=== PATIENT | female | born 2000 | race Caucasian/White ===

== ENCOUNTER 2025-04-08 17:50 | Observation (INO) ==
--- NOTE | 2025-04-08 18:01 | DR.CP ---
HPI Time Seen Time Seen by Provider: 04/08/25 18:01 HPI Comment HPI Comment: History as below. COVID-19 Coronavirus risk:travel/contact w/high risk person: Yes Has patient experienced Coronavirus symptoms: Yes Reviewed Nurses Notes Review: Yes PMH PMH Past Surgical History: No Social History Do you use any recreational Drugs:: No ROS Review of Systems Constitutional: No Symptoms Reported and See HPI Eyes: No Symptoms Reported and See HPI ENTM: No Symptoms Reported and See HPI Respiratoy: No Symptoms Reported and See HPI Cardiovascular: No Symptoms Reported and See HPI Gastrointestinal/Abdominal: No Symptoms Reported Genitourinary: No Symptoms Reported and See HPI Neurological: No Symptoms Reported and See HPI Musculoskeletal: No Symptoms Reported and See HPI Integumentary: No Symptoms Reported and See HPI Hematologic/Lymphatic: No Symptoms Reported and See HPI Endocrine: No Symptoms Reported and See HPI Psychiatric: No Symptoms Reported and See HPI All Other Systems: Reviewed and Negative PE Vitals Vitals: Vital Signs Temperature 98.3 F Pulse Rate [Left] 79 Pulse Rate 93 Pulse Rate 87 Pulse Rate 85 Pulse Rate 84 Pulse Rate 84 Pulse Rate 88 Pulse Rate 90 Pulse Rate 84 Pulse Rate 81 Pulse Rate 80 Pulse Rate 72 Pulse Rate 77 Pulse Rate 75 Pulse Rate 78 Pulse Rate 86 Pulse Rate 74 Pulse Rate 73 Pulse Rate 83 Pulse Rate 79 Pulse Rate 75 Pulse Rate 79 Respiratory Rate 19 Respiratory Rate 22 Respiratory Rate 16 Respiratory Rate 36 Respiratory Rate 15 Respiratory Rate 24 Respiratory Rate 9 Respiratory Rate 22 Respiratory Rate 20 Respiratory Rate 16 Respiratory Rate 29 Respiratory Rate 19 Respiratory Rate 18 Respiratory Rate 12 Respiratory Rate 23 Respiratory Rate 18 Respiratory Rate 28 Respiratory Rate 19 Blood Pressure 120/64 Blood Pressure 121/71 Blood Pressure 124/82 Blood Pressure 124/74 Blood Pressure 124/74 Blood Pressure 124/74 Blood Pressure 117/74 Blood Pressure 117/74 Blood Pressure 123/72 Blood Pressure 109/73 Blood Pressure 122/57 Blood Pressure 131/80 Blood Pressure 132/78 Blood Pressure 132/78 O2 Sat by Pulse Oximetry 95 O2 Sat by Pulse Oximetry 99 O2 Sat by Pulse Oximetry 99 O2 Sat by Pulse Oximetry 100 O2 Sat by Pulse Oximetry 98 O2 Sat by Pulse Oximetry 98 O2 Sat by Pulse Oximetry 99 O2 Sat by Pulse Oximetry 99 O2 Sat by Pulse Oximetry 98 O2 Sat by Pulse Oximetry 99 O2 Sat by Pulse Oximetry 100 O2 Sat by Pulse Oximetry 100 General Limitations: No Limitations General Appearance: Alert and In No Apparent Distress Head Head Exam: Normal Inspection Eyes Eye exam: Normal Appearance, PERRL and EOMI; negative Scleral Icterus or Conjunctival Injection ENT ENT Exam: Normal Exam, Normal Oropharynx, Normal External Ear Exam and TM's Normal Bilaterally Chest Chest Inspection: Normal Inspection, Symmetric Chest Wall Rise and Tenderness Respiratory Respiratory Exam: Normal Lung Sounds Bilat; negative Accessory Muscle Use, Chest Wall Tenderness or Respiratory Distress Cardiovascular Cardiovascular Exam: Regular Rate, Normal Rhythm and Normal Heart Sounds; negative Systolic Murmur or Diastolic Murmur Abdominal Exam Abdominal Exam: Normal Inspection, Normal Bowel Sounds, Soft and Tenderness Abdominal Tenderness: Epigastrium and Moderate Extremities Extremities Exam: Normal Inspection and Normal Capillary Refill Back Back Exam: Normal Inspection; negative (R) CVA Tenderness or (L) CVA Tenderness Neurologic Neurological Exam: Alert and Oriented X3; negative Motor Sensory Deficit Psychiatric Psychiatric Exam: Normal Affect and Normal Mood Skin Skin Exam: Warm and Intact ROR Labs Reviewed 04/08/25 18:30 04/08/25 18:30 Laboratory: WBC 20.1 X10^3/uL (3.6-10.0) H 04/08/25 18:30 RBC 4.77 X10^6/uL (3.5-5.4) 04/08/25 18:30 Hgb 14.1 g/dL (12.0-16.0) 04/08/25 18:30 Hct 41.7 % (36.0-47.0) 04/08/25 18:30 MCV 87.3 fL (80.0-100.0) 04/08/25 18:30 MCH 29.6 pg (27.0-34.0) 04/08/25 18:30 MCHC 33.9 g/dL (33.0-35.0) 04/08/25 18:30 RDW 13.4 % (11.6-16.5) 04/08/25 18:30 Plt Count 299 X10^3/uL (150.0-450.0) 04/08/25 18:30 Plt Count Comment Adequate (ADEQUATE) 04/08/25 18:30 MPV 8.8 fL (7.4-11.0) 04/08/25 18:30 Neut % (Auto) 91.5 % (42.0-75.0) H 04/08/25 18:30 Lymph % (Auto) 5.5 % (21.0-51.0) L 04/08/25 18:30 [place] % (Auto) 2.7 % (0.0-13.0) 04/08/25 18:30 Eos % (Auto) 0.1 % (0.9-2.9) L 04/08/25 18:30 Baso % (Auto) 0.2 % (0.2-1.0) 04/08/25 18:30 Neut # (Auto) 18.4 x10^3/uL (2.2-4.8) H 04/08/25 18:30 Lymph # (Auto) 1.1 X10^3/uL (1.3-2.9) L 04/08/25 18:30 [place] # (Auto) 0.5 x10^3/uL (0.3-0.8) 04/08/25 18:30 Eos # (Auto) 0.0 x10^3/uL (0.0-0.2) 04/08/25 18:30 Baso # (Auto) 0.0 X10^3/uL (0.0-0.1) 04/08/25 18:30 Absolute Nucleated RBC 0.1 /100WBC 04/08/25 18:30 Total Counted 100 04/08/25 18:30 Neutrophils % (Manual) 90 % (39-76) H 04/08/25 18:30 Lymphocytes % (Manual) 9 % (13-43) L 04/08/25 18:30 Monocytes % (Manual) 1 % (4-9) L 04/08/25 18:30 Plt Morphology Comment Normal (NORMAL) 04/08/25 18:30 RBC Morphology Normal (NORMAL) 04/08/25 18:30 D-Dimer 0.30 ug/ml (0.0-0.57) 04/08/25 18:30 Sodium 141 mmol/L (136-145) 04/08/25 18:30 Corrected Sodium 141 mmol/L (136-145) 04/08/25 18:30 Potassium 3.7 mmol/L (3.5-5.1) 04/08/25 18:30 Chloride 103 mmol/L (98-107) 04/08/25 18:30 Carbon Dioxide 27.6 mmol/L (21-32) 04/08/25 18:30 BUN 13 mg/dL (7-18) 04/08/25 18:30 Creatinine 0.73 mg/dL (0.55-1.02) 04/08/25 18:30 Est GFR (MDRD) Af Amer > 60 (>60) 04/08/25 18:30 Est GFR (MDRD) Non-Af > 60 (>60) 04/08/25 18:30 Glucose 119 mg/dL (65-99) H 04/08/25 18:30 Calcium 9.6 mg/dL (8.5-10.1) 04/08/25 18:30 Corrected Calcium TNP 04/08/25 18:30 Total Bilirubin 1.50 mg/dL (0.2-1.0) H 04/08/25 18:30 AST 79 Units/L (15-37) H 04/08/25 18:30 ALT 58 Units/L (12-78) 04/08/25 18:30 Alkaline Phosphatase 125 Units/L (46-116) H 04/08/25 18:30 Creatine Kinase 105 Units/L (26-192) 04/08/25 18:30 Troponin I High Sens < 4.0 ng/L (4.0-60.0) L 04/08/25 18:30 B-Natriuretic Peptide 18.1 pg/mL (0-79) 04/08/25 18:30 Total Protein 8.0 g/dL (6.4-8.2) 04/08/25 18:30 Albumin 4.1 g/dL (3.4-5.0) 04/08/25 18:30 Globulin 3.9 g/dL (2.5-4.5) 04/08/25 18:30 Albumin/Globulin Ratio 1.1 Ratio (1.1-2.1) 04/08/25 18:30 Amylase 47 Units/L (25-115) 04/08/25 18:30 Lipase 24 Units/L (16-77) 04/08/25 18:30 Specimen Type Clean catch urine 04/08/25 20:08 Urine Color Dark yellow (YELLOW) 04/08/25 20:08 Urine Appearance Cloudy (CLEAR) 04/08/25 20:08 Urine pH 8.0 (5.0 - 8.0) 06/07/25 20:08 Ur Specific [place] 1.020 (1.000-1.030) 04/08/25 20:08 Urine Protein Negative (NEGATIVE) 04/08/25 20:08 Urine Glucose (UA) Negative (NEGATIVE) 04/08/25 20:08 Urine Ketones 4+ (NEGATIVE) 04/08/25 20:08 Urine Blood Negative (NEGATIVE) 04/08/25 20:08 Urine Nitrite Negative (NEGATIVE) 04/08/25 20:08 Urine Bilirubin Negative (NEGATIVE) 04/08/25 20:08 Urine Urobilinogen 2+ (NORMAL) 04/08/25 20:08 Ur Leukocyte Esterase 1+ (NEGATIVE) 04/08/25 20:08 Urine RBC None seen /HPF (0-3) 04/08/25 20:08 Urine WBC 0-2 /HPF (0-5) 04/08/25 20:08 Ur Squamous Epith Cells Few /HPF (NEGATIVE) 04/08/25 20:08 Amorphous Sediment 4+ /HPF (NEGATIVE) 04/08/25 20:08 Urine Bacteria Trace /HPF (NEGATIVE) 04/08/25 20:08 Ur Culture Indicated? No/not indicated 04/08/25 20:08 Opioid Opioid Risk Tool Total: 0 Total Score Risk Category: Low Risk Copyright: Jack SENA predicting aberrant behaviors Discharge Plan Diagnosis Discharge Problem: Acute cholecystitis, Cholelithiasis, Abdominal pain, Leukocytosis Discharge Plan Patient Disposition: HOME, SELF-CARE Condition: Stable Orders to Discharge Patient Discharge Orders: Transfer (Routine); Ordered 04/08/25 Ordered By: JESSE GUERRERO
[2025-04-08] MEDS: TORADOL 60 MG VIAL IM ONE (18:34)
[2025-04-08] MEDS: ZOFRAN INJ 4 MG VIAL IM ONE (18:35)
[2025-04-08 18:41] LABS: MEAN PLATELET VOLUME 8.8 fL (7.4-11.0); RED BLOOD COUNT 4.77 X10^6/uL (3.5-5.4); WHITE BLOOD COUNT 20.1 X10^3/uL (3.6-10.0)
[2025-04-08 18:44] LABS: BASOPHILS % (AUTO) 0.2 % (0.2-1.0); EOSINOPHILS % (AUTO) 0.1 % (0.9-2.9); HEMATOCRIT 41.7 % (36.0-47.0); HEMOGLOBIN 14.1 g/dL (12.0-16.0); LYMPHOCYTES # (AUTO) 1.1 X10^3/uL (1.3-2.9); LYMPHOCYTES % (AUTO) 5.5 % (21.0-51.0); MEAN CORPUSCULAR HEMOGLOBIN 29.6 pg (27.0-34.0); MEAN CORPUSCULAR HGB CONC 33.9 g/dL (33.0-35.0); MEAN CORPUSCULAR VOLUME 87.3 fL (80.0-100.0); MONOCYTES # (AUTO) 0.5 x10^3/uL (0.3-0.8); MONOCYTES % (AUTO) 2.7 % (0.0-13.0); NEUTROPHILS # (AUTO) 18.4 x10^3/uL (2.2-4.8); NEUTROPHILS % (AUTO) 91.5 % (42.0-75.0); PLATELET COUNT 299 X10^3/uL (150.0-450.0); RED CELL DISTRIBUTION WIDTH 13.4 % (11.6-16.5)
--- NOTE | 2025-04-08 18:48 | EKG ---
Test Reason : CHEST PAIN. Blood Pressure : */* mmHG Vent. Rate : 72 BPM Atrial Rate : 72 BPM P-R Int : 132 ms QRS Dur : 92 ms QT Int : 400 ms P-R-T Axes : 41 43 43 degrees QTc Int : 438 ms Sinus rhythm with marked sinus arrhythmia Otherwise normal ECG No previous ECGs available Confirmed by Luis M Nice MD ([id number]) on 04/09/2025 6:40:23 AM Referred By: Confirmed By: Luis M Nice MD
[2025-04-08 18:54] LABS: ALANINE AMINOTRANSFERASE 58 Units/L (12-78); ALBUMIN 4.1 g/dL (3.4-5.0); ALKALINE PHOSPHATASE 125 Units/L (46-116); AMYLASE 47 Units/L (25-115); ASPARTATE AMINO TRANSFERASE 79 Units/L (15-37); BLOOD UREA NITROGEN 13 mg/dL (7-18); CALCIUM 9.6 mg/dL (8.5-10.1); CARBON DIOXIDE 27.6 mmol/L (21-32); CHLORIDE 103 mmol/L (98-107); COR NA(FOR HYPERGLY) 141 mmol/L (136-145); CREATINE KINASE 105 Units/L (26-192); CREATININE 0.73 mg/dL (0.55-1.02); GLUCOSE 119 mg/dL (65-99); LIPASE 24 Units/L (16-77); POTASSIUM 3.7 mmol/L (3.5-5.1); SODIUM 141 mmol/L (136-145); eGFR NON BLACK RACES > 60 (>60)
[2025-04-08 18:56] LABS: PLATELET MORPHOLOGY COMMENT NORMAL (NORMAL)
--- NOTE | 2025-04-08 19:08 | RAD ---
EXAM: CHEST, 1 VIEW HISTORY: CHEST PAIN; COMPARISON: None. TECHNIQUE: Portable chest FINDINGS: Heart size and mediastinal contours are normal. Lungs are clear as are the pleural spaces. No free air or pneumothorax. No acute bony abnormality. IMPRESSION: No acute radiographic abnormalities of the chest THIS IS AN ELECTRONICALLY VERIFIED FINAL REPORT 04/08/2025 7:05 PM - Electronically signed by Chase Crane MD
[2025-04-08 20:26] LABS: BILIRUBIN,URINE NEGATIVE (NEGATIVE); BLOOD/HEMOGLOBIN,URINE NEGATIVE (NEGATIVE); GLUCOSE, URINE NEGATIVE (NEGATIVE); KETONES,URINE 4+ (NEGATIVE); LEUKOCYTE ESTERASE ,URINE 1+ (NEGATIVE); NITRITES,URINE NEGATIVE (NEGATIVE); PROTEIN,URINE NEGATIVE (NEGATIVE); UROBILINOGEN,URINE 2+ (NORMAL)
[2025-04-08 20:33] LABS: APPEARANCE,URINE CLOUDY (CLEAR); COLOR,URINE DARK YELLOW (YELLOW)
[2025-04-08 20:34] LABS: BACTERIA,URINE TRACE /HPF (NEGATIVE); RBC,URINE NONE SEEN /HPF (0-3); SQUAMOUS EPITHELIAL CELL,UR FEW /HPF (NEGATIVE)
--- NOTE | 2025-04-08 21:20 | CT ---
EXAM: CT ABDOMEN AND PELVIS WITHOUT CONTRAST HISTORY: ABDOMINAL PAIN, N/V; COMPARISON: None TECHNIQUE: Axial images were obtained of the abdomen and pelvis without IV contrast. Sagittal and coronal reformatted images were provided. All images were reviewed in a variety of windows and levels. RADIATION REDUCTION TECHNIQUE: Automated exposure control, adjustment of the mA or kV according to patient size, or iterative reconstruction techniques were used. FINDINGS: Please note that lack of IV contrast does limit evaluation of the soft tissues and vascular detail. The visualized lower lung zones are clear. The heart size is within normal limits. There is no evidence of a pericardial effusion. The liver, spleen, pancreas, adrenal glands, and kidneys are grossly unremarkable. Cholelithiasis. There is no evidence of stones or signs of obstructive uropathy. The stomach, small bowel, and colon are grossly unremarkable. There are no inflammatory changes in the right lower quadrant to suggest secondary signs of acute appendicitis. Normal appendix right lower quadrant. There is no evidence of retroperitoneal or mesenteric lymphadenopathy. The uterus is present. The visualized bones are intact. There are no concerning lytic or blastic lesions identified. IMPRESSION: Cholelithiasis. No acute abdominal or pelvic pathology THIS IS AN ELECTRONICALLY VERIFIED FINAL REPORT 04/08/2025 9:16 PM - Electronically signed by Lior Bai MD
[2025-04-08] MEDS: NS 1,000 ML IV 1,000 ML IV SCH (22:19)
[2025-04-08] MEDS: CIPRO IV 400 MG PREMIX* 400 MG/200 ML IV.SOLN. IV ONE (22:19)
[2025-04-08] MEDS ORDERED: ULTANE GAS IN ONE (22:20)
[2025-04-08] MEDS ORDERED: KETAMINE HCL ONE (22:20)
[2025-04-08] MEDS ORDERED: XYLOCAINE 2 % (PLAIN) ONE (22:20)
[2025-04-08 23:22] VITALS: BMI 30.3
[2025-04-08] MEDS: MORPHINE SULFATE INJ 2 MG INJ IVP PRN (23:29)
[2025-04-09 06:12] LABS: BASOPHILS # (AUTO) 0.1 X10^3/uL (0.0-0.1); BASOPHILS % (AUTO) 0.5 % (0.2-1.0); EOSINOPHILS # (AUTO) 0.1 x10^3/uL (0.0-0.2); EOSINOPHILS % (AUTO) 0.6 % (0.9-2.9); HEMATOCRIT 37.5 % (36.0-47.0); HEMOGLOBIN 12.8 g/dL (12.0-16.0); LYMPHOCYTES # (AUTO) 2.1 X10^3/uL (1.3-2.9); LYMPHOCYTES % (AUTO) 17.6 % (21.0-51.0); MEAN CORPUSCULAR HEMOGLOBIN 29.6 pg (27.0-34.0); MEAN CORPUSCULAR HGB CONC 34.2 g/dL (33.0-35.0); MEAN CORPUSCULAR VOLUME 86.6 fL (80.0-100.0); MEAN PLATELET VOLUME 9.3 fL (7.4-11.0); MONOCYTES # (AUTO) 0.9 x10^3/uL (0.3-0.8); MONOCYTES % (AUTO) 7.7 % (0.0-13.0); NEUTROPHILS # (AUTO) 8.9 x10^3/uL (2.2-4.8); NEUTROPHILS % (AUTO) 73.6 % (42.0-75.0); PLATELET COUNT 286 X10^3/uL (150.0-450.0); RED BLOOD COUNT 4.33 X10^6/uL (3.5-5.4); RED CELL DISTRIBUTION WIDTH 12.9 % (11.6-16.5); WHITE BLOOD COUNT 12.1 X10^3/uL (3.6-10.0)
[2025-04-09 06:20] LABS: ALANINE AMINOTRANSFERASE 120 Units/L (12-78); ALBUMIN 3.3 g/dL (3.4-5.0); ALKALINE PHOSPHATASE 109 Units/L (46-116); AMYLASE 37 Units/L (25-115); ASPARTATE AMINO TRANSFERASE 107 Units/L (15-37); BLOOD UREA NITROGEN 12 mg/dL (7-18); CALCIUM 8.6 mg/dL (8.5-10.1); CARBON DIOXIDE 25.8 mmol/L (21-32); CHLORIDE 106 mmol/L (98-107); COR CA(FOR HYPOALB) 9.2 mg/dL (8.5-10.1); CREATININE 0.69 mg/dL (0.55-1.02); GLUCOSE 85 mg/dL (65-99); LIPASE 17 Units/L (16-77); POTASSIUM 3.8 mmol/L (3.5-5.1); SODIUM 141 mmol/L (136-145); TOTAL PROTEIN 6.7 g/dL (6.4-8.2); eGFR NON BLACK RACES > 60 (>60)
[2025-04-09] MEDS: ZOFRAN INJ 4 MG VIAL IVP PRN ×2 (08:35→21:16)
[2025-04-09] MEDS: CIPRO IV 400 MG PREMIX* 400 MG/200 ML IV.SOLN. IV SCH (10:06)
--- NOTE | 2025-04-09 19:06 | DR.H&P ---
H&P History & Physical for Day of: H&P Date: 04/09/25 Chief Complaint Chief Complaint: Right upper quadrant pain History of Present Illness History of Present Illness: Patient is a 24-year-old female who presented to the emergency room with several history of right upper quadrant pain rating into her back. Evaluated in the emergency room and CT scan consistent with cholelithiasis. No obvious evidence of acute cholecystitis. Mild elevation of liver function test including total bilirubin 1.50 which declined 1.20 later that morning. Social History Does patient currently use any type of tobacco product: No Type of Tobacco Use: None Does any household member use tobacco: No Alcohol Use: None Drug Use: None Medications Home Medications: Home Medications Medication Instructions Recorded Confirmed Type NK 04/09/25 04/09/25 History Allergies Allergies Allergy/AdvReac Type Severity Reaction Status Date / Time No Known Allergies Allergy Verified 04/08/25 18:06 Labs 04/09/25 05:14 04/09/25 05:14 Labs: Laboratory WBC 12.1 X10^3/uL (3.6-10.0) H D 04/09/25 05:14 RBC 4.33 X10^6/uL (3.5-5.4) 04/09/25 05:14 Hgb 12.8 g/dL (12.0-16.0) 04/09/25 05:14 Hct 37.5 % (36.0-47.0) 04/09/25 05:14 MCV 86.6 fL (80.0-100.0) 04/09/25 05:14 MCH 29.6 pg (27.0-34.0) 04/09/25 05:14 MCHC 34.2 g/dL (33.0-35.0) 04/09/25 05:14 RDW 12.9 % (11.6-16.5) 04/09/25 05:14 Plt Count 286 X10^3/uL (150.0-450.0) 04/09/25 05:14 Plt Count Comment Adequate (ADEQUATE) 04/08/25 18:30 MPV 9.3 fL (7.4-11.0) 04/09/25 05:14 Neut % (Auto) 73.6 % (42.0-75.0) 04/09/25 05:14 Lymph % (Auto) 17.6 % (21.0-51.0) L 04/09/25 05:14 [place] % (Auto) 7.7 % (0.0-13.0) 04/09/25 05:14 Eos % (Auto) 0.6 % (0.9-2.9) L 04/09/25 05:14 Baso % (Auto) 0.5 % (0.2-1.0) 04/09/25 05:14 Neut # (Auto) 8.9 x10^3/uL (2.2-4.8) H 04/09/25 05:14 Lymph # (Auto) 2.1 X10^3/uL (1.3-2.9) 04/09/25 05:14 [place] # (Auto) 0.9 x10^3/uL (0.3-0.8) H 04/09/25 05:14 Eos # (Auto) 0.1 x10^3/uL (0.0-0.2) 04/09/25 05:14 Baso # (Auto) 0.1 X10^3/uL (0.0-0.1) 04/09/25 05:14 Absolute Nucleated RBC 0.0 /100WBC 04/09/25 05:14 Total Counted 100 04/08/25 18:30 Neutrophils % (Manual) 90 % (39-76) H 04/08/25 18:30 Lymphocytes % (Manual) 9 % (13-43) L 04/08/25 18:30 Monocytes % (Manual) 1 % (4-9) L 04/08/25 18:30 Plt Morphology Comment Normal (NORMAL) 04/08/25 18:30 RBC Morphology Normal (NORMAL) 04/08/25 18:30 D-Dimer 0.30 ug/ml (0.0-0.57) 04/08/25 18:30 Sodium 141 mmol/L (136-145) 04/09/25 05:14 Corrected Sodium TNP 04/09/25 05:14 Potassium 3.8 mmol/L (3.5-5.1) 04/09/25 05:14 Chloride 106 mmol/L (98-107) 04/09/25 05:14 Carbon Dioxide 25.8 mmol/L (21-32) 04/09/25 05:14 BUN 12 mg/dL (7-18) 04/09/25 05:14 Creatinine 0.69 mg/dL (0.55-1.02) 04/09/25 05:14 Est GFR (MDRD) Af Amer > 60 (>60) 04/09/25 05:14 Est GFR (MDRD) Non-Af > 60 (>60) 04/09/25 05:14 Glucose 85 mg/dL (65-99) 04/09/25 05:14 Calcium 8.6 mg/dL (8.5-10.1) 04/09/25 05:14 Corrected Calcium 9.2 mg/dL (8.5-10.1) 04/09/25 05:14 Total Bilirubin 1.20 mg/dL (0.2-1.0) H 04/09/25 05:14 AST 107 Units/L (15-37) H 04/09/25 05:14 ALT 120 Units/L (12-78) H 04/09/25 05:14 Alkaline Phosphatase 109 Units/L (46-116) 04/09/25 05:14 Creatine Kinase 105 Units/L (26-192) 04/08/25 18:30 Troponin I High Sens < 4.0 ng/L (4.0-60.0) L 04/08/25 18:30 B-Natriuretic Peptide 18.1 pg/mL (0-79) 04/08/25 18:30 Total Protein 6.7 g/dL (6.4-8.2) 04/09/25 05:14 Albumin 3.3 g/dL (3.4-5.0) L 04/09/25 05:14 Globulin 3.4 g/dL (2.5-4.5) 04/09/25 05:14 Albumin/Globulin Ratio 1.0 Ratio (1.1-2.1) L 04/09/25 05:14 Amylase 37 Units/L (25-115) 04/09/25 05:14 Lipase 17 Units/L (16-77) 04/09/25 05:14 Specimen Type Clean catch urine 04/08/25 20:08 Urine Color Dark yellow (YELLOW) 04/08/25 20:08 Urine Appearance Cloudy (CLEAR) 04/08/25 20:08 Urine pH 8.0 (5.0 - 8.0) 04/08/25 20:08 Ur Specific [place] 1.020 (1.000-1.030) 04/08/25 20:08 Urine Protein Negative (NEGATIVE) 04/08/25 20:08 Urine Glucose (UA) Negative (NEGATIVE) 04/08/25 20:08 Urine Ketones 4+ (NEGATIVE) 04/08/25 20:08 Urine Blood Negative (NEGATIVE) 04/08/25 20:08 Urine Nitrite Negative (NEGATIVE) 04/08/25 20:08 Urine Bilirubin Negative (NEGATIVE) 04/08/25 20:08 Urine Urobilinogen 2+ (NORMAL) 04/08/25 20:08 Ur Leukocyte Esterase 1+ (NEGATIVE) 04/08/25 20:08 Urine RBC None seen /HPF (0-3) 04/08/25 20:08 Urine WBC 0-2 /HPF (0-5) 04/08/25 20:08 Ur Squamous Epith Cells Few /HPF (NEGATIVE) 04/08/25 20:08 Amorphous Sediment 4+ /HPF (NEGATIVE) 04/08/25 20:08 Urine Bacteria Trace /HPF (NEGATIVE) 04/08/25 20:08 Ur Culture Indicated? No/not indicated 04/08/25 20:08 Review of Systems Constitutional: See HPI Eyes: No Symptoms Reported ENT: No Symptoms Reported Respiratory: No Symptoms Reported Cardiovascular: No Symptoms Reported Gastrointestinal: No Symptoms Reported Genitourinary: No Symptoms Reported Musculoskeletal: No Symptoms Reported Skin: No Symptoms Reported Neurological: No Symptoms Reported Physical Exam Vital Signs: Vital Signs Temperature 98.0 F Temperature 98.1 F Pulse Rate [Right] 72 Pulse Rate [Right] 91 Respiratory Rate 21 Respiratory Rate 20 Blood Pressure [Right Arm] 112/68 Blood Pressure [Right Arm] 108/68 O2 Sat by Pulse Oximetry 100 O2 Sat by Pulse Oximetry 98 Oriented: Normal, Time, Person and Place Eyes: Normal Ear: Normal Nose: Normal Throat: Normal Respiratory: Clear Throughout Cardiovascular: Normal : Normal Auscultation: Bowel Sounds: Normal Palpation: Normal Tenderness: RUQ (mild tenderness, no rebound) Skin: Normal Musculoskeletal: Normal Psychiatric: Normal Mood Description: Calm Affect: Normal Speech Pattern: Clear Assessment/Plan (1) Cholelithiasis: Narrative Support Text: Patient with evidence of symptomatic cholelithiasis. Patient had mild ovation of bilirubin is already declining. Possible passed common bile duct stone. Patient will require laparoscopic cholecystectomy and cholangiogram. Status: Acute
[2025-04-10] MEDS: NOZIN NASAL SANITIZER TP ONE (06:06)
[2025-04-10] MEDS: HIBICLENS WASH EXT ONE (06:06)
[2025-04-10 06:15] LABS: ALANINE AMINOTRANSFERASE 102 Units/L (12-78); ALKALINE PHOSPHATASE 94 Units/L (46-116); ASPARTATE AMINO TRANSFERASE 62 Units/L (15-37); BLOOD UREA NITROGEN 7 mg/dL (7-18); CALCIUM 7.9 mg/dL (8.5-10.1); CARBON DIOXIDE 24.2 mmol/L (21-32); CHLORIDE 109 mmol/L (98-107); COR CA(FOR HYPOALB) 8.7 mg/dL (8.5-10.1); CREATININE 0.73 mg/dL (0.55-1.02); GLUCOSE 83 mg/dL (65-99); MAGNESIUM 1.9 mg/dL (2.0-2.9); POTASSIUM 3.5 mmol/L (3.5-5.1); SODIUM 141 mmol/L (136-145); TOTAL PROTEIN 6.2 g/dL (6.4-8.2); eGFR NON BLACK RACES > 60 (>60)
[2025-04-10] MEDS ORDERED: CONSULT PHARMACY - POTASSIUM & MAGNESIUM XX SCH (08:00)
[2025-04-10 14:19] LABS: SERUM PREGNANCY TEST, QUAL NEGATIVE <10 mIU/mL
[2025-04-10] MEDS: DIPRIVAN VIAL 20 ML ONE (15:21)
[2025-04-10] MEDS: DECADRON INJ ONE (15:21)
[2025-04-10] MEDS: FENTANYL VIAL INJ 100 mcg ONE (15:21)
[2025-04-10] MEDS: ZOFRAN INJ 4 MG VIAL ONE ×2 (15:21→15:33)
[2025-04-10] MEDS: TORADOL 30 MG VIAL ONE (15:21)
[2025-04-10] MEDS: PRECEDEX INJ VIAL ONE (15:21)
[2025-04-10] MEDS: ZEMURON 100 MG VIAL ONE (15:21)
[2025-04-10] MEDS: VERSED ONE (15:22)
[2025-04-10] MEDS: BRIDION ONE (15:33)
[2025-04-10] MEDS: LR 1,000 ML IV 1,000 ML IV ONE (15:33)
[2025-04-10] MEDS ORDERED: BENADRYL INJ 50 MG VIAL IVP PRN (15:35)
[2025-04-10] MEDS ORDERED: ZOFRAN INJ 4 MG VIAL IVP PRN (15:35)
[2025-04-10] MEDS ORDERED: REGLAN INJ 10 MG VIAL IVP PRN (15:35)
[2025-04-10] MEDS ORDERED: DILAUDID INJ IVP PRN (15:35)
[2025-04-10] MEDS ORDERED: BARHEMSYS INJ IVP PRN (15:35)
[2025-04-10] MEDS: ANCEF VIAL 1 GRAM ONE (15:50)
[2025-04-10] MEDS: NS 100 ML IV 100 ML ONE (15:50)
[2025-04-10] MEDS: MARCAINE 0.5% ONE (16:03)
[2025-04-10] MEDS: OFIRMEV IV 1000 MG VIAL 1,000 MG/100 ML VIAL IV ONE (16:04)
[2025-04-10] MEDS: VISIPAQUE 50 ML ONE (16:18)
[2025-04-10] MEDS: DILAUDID INJ ONE (16:35)
--- NOTE | 2025-04-10 17:07 | OR.IMMED ---
IMMEDIATE POST-OP NOTE Immediate Post-Op Note Date of surgery/procedure: 04/10/25 Pre-Op Diagnosis: symptomatic cholelithiasis and elevated bilirubin Post-Op Diagnosis: same , negative cholangiogram Procedure: laparoscopic cholecystectomy with no filling defects of cholangiogram Description of Procedure: dictated Surgeon/Program Strategist: Handy Findings: as above Specimens Removed: gallbladder Estimated Blood Loss: < 50 cc Drains: NONE Complications: none Progress Notes: to PACU then to floor, begin diet , check labs in AM
--- NOTE | 2025-04-10 18:36 | DR.OPNOTE ---
OP NOTE Pre-Op Diagnosis: Symptomatic cholelithiasis. Elevated bilirubin Post-Op Diagnosis: Mild inflammation of the gallbladder, no obvious filling defect of the CBD Procedure Date Date Of Procedure: 04/10/25 Procedure: PROCEDURE: Laparoscopic cholecystectomy and cholangiogram NARRATIVE: INDICATIONS : Cholelithiasis/cholecystitis, possible common bile duct stone PROCEDURE : Patient taken to the operative suite and placed in the supine position. General endotracheal anesthesia induced and the entire abdomen prepped and draped in sterile fashion. Patient placed in reverse Trendelenburg and rolled to the patient's left. Curvilinear incision made below the umbilicus in the midline and dissection carried down to the midline fascia. Holding sutures of 0 Vicryl placed on either side of the midline fascia and the fascia opened with a #15 knife blade. Peritoneum opened with Metzenbaum scissors and the abdominal cavity entered. Cortez cannula placed and secured with holding sutures. Abdomen insufflated to 50 mm of Hg with carbon dioxide and under direct vision a 5 mm trocar placed in epigastrium and two 5 mm trocars placed in the right upper quadrant subcostal area. The gallbladder elevated by grasping the fundus and dissection carried out in Calot's triangle defining the cystic duct and cystic artery, i.e. critical view of safety. The cystic duct was clipped below the fundus and the cystic duct opened with Metzenbaum scissors and a Ranfac cannula placed in the cystic duct and sec ured with a clip. Cholangiogram carried out showing no filling defect with good flow of contrast into the duodenum and good flow into the main bile ducts in the liver . Tic he cystic duct and cyst artery were clipped proximally ,distally and divided. Peritoneum of the gallbladder incised with electrocautery and the gallbladder removed from the liver bed. There was no active bleeding. All trocars removed. The fascia of the initial infraumbilical incision closed with interrupted 0 Vicryl suture. All incisions then closed with 3-0 Vicryl subcutaneous sutures and Steri-Strips. A total of 15 cc of 0.5 percent Marcaine with epinephrine injected and distributed between the 4 laparoscopic incisions. Patient extubated and taken to PACU in good condition. Type of Anesthesia: General Anesthetic w/ETT Findings: as above Specimen/Pathology: gallbladder Type of Fluids Used:: Lactated Ringers EBL: <50 cc Drains/Tubes Placed: None Complications:: none Needle/Sponge Count:: correct Disposition/Condition: Pt. tolerated procedure without difficulty. Extubated in the OR and taken to PACU in stable condition.
[2025-04-10] MEDS: CIPRO TAB 500 MG PO SCH (20:13)
[2025-04-10 23:05] VITALS: O2SAT 96
[2025-04-11 05:01] VITALS: RESP 16
[2025-04-11 05:11] LABS: ALANINE AMINOTRANSFERASE 208 Units/L (12-78); ALBUMIN 3.2 g/dL (3.4-5.0); ALKALINE PHOSPHATASE 146 Units/L (46-116); ASPARTATE AMINO TRANSFERASE 236 Units/L (15-37); BLOOD UREA NITROGEN 8 mg/dL (7-18); CALCIUM 8.5 mg/dL (8.5-10.1); CARBON DIOXIDE 26.2 mmol/L (21-32); CHLORIDE 106 mmol/L (98-107); COR CA(FOR HYPOALB) 9.1 mg/dL (8.5-10.1); COR NA(FOR HYPERGLY) 140 mmol/L (136-145); CREATININE 0.74 mg/dL (0.55-1.02); GLUCOSE 176 mg/dL (65-99); POTASSIUM 4.1 mmol/L (3.5-5.1); SODIUM 138 mmol/L (136-145); TOTAL PROTEIN 6.8 g/dL (6.4-8.2); eGFR NON BLACK RACES > 60 (>60)
--- NOTE | 2025-04-11 08:12 | W.DIS.FURT ---
Summary of Discharge Discharge Summary of Date Date of Exam: 04/11/25 Admission Date Date of Admission: 04/08/25 Admission Diagnosis Patient Problems (Updated 04/08/25 @ 22:16 by JESSE GURERERO) Leukocytosis (Acute) D72.829 Abdominal pain (Acute) R10.9 Cholelithiasis (Acute) K80.20 Acute cholecystitis (Acute) K81.0 Hospital Course: This is a 4-year-old female presented with abdominal pain and right upper quadrant tenderness and CT scan consistent with cholelithiasis. Patient had mild elevation of bilirubin. Patient underwent uncomplicated laparoscopic cholecystectomy with cholangiogram showing no filling defects. She is doing well. Mayo her diet. Her bilirubin remains mildly elevated 1.4 as are her AST and ALT as well. This will be followed up postprocedure. There is no evidence of a leak or obstruction of the bile duct based upon the cholangiogram. She be discharged home today on usual medications plus Cipro 5 mg twice daily x 1 week and Percocet, 5 mg tablets, 1 every 6 hours as needed for pain. Vital Signs: Vital Signs (72 hours) 04/08/25 17:50 04/08/25 17:50 04/08/25 17:53 Temperature 98.3 F Pulse Rate 79 Pulse Rate [Left] 79 Pulse Rate [Right] Respiratory Rate 19 Blood Pressure 132/78 132/78 Blood Pressure [Right Arm] O2 Sat by Pulse Oximetry 100 Oxygen Delivery Method Room Air Oxygen Flow Rate 04/08/25 17:53 04/08/25 18:00 04/08/25 18:00 Temperature Pulse Rate 75 79 Pulse Rate [Left] Pulse Rate [Right] Respiratory Rate 28 H Blood Pressure 131/80 Blood Pressure [Right Arm] O2 Sat by Pulse Oximetry 100 99 Oxygen Delivery Method Oxygen Flow Rate 04/08/25 18:15 04/08/25 18:25 04/08/25 18:30 Temperature Pulse Rate 83 73 Pulse Rate [Left] Pulse Rate [Right] Respiratory Rate 18 23 Blood Pressure 122/57 Blood Pressure [Right Arm] O2 Sat by Pulse Oximetry 98 99 Oxygen Delivery Method Oxygen Flow Rate 04/08/25 18:32 04/08/25 18:34 04/08/25 18:45 Temperature Pulse Rate 74 86 Pulse Rate [Left] Pulse Rate [Right] Respiratory Rate 12 18 19 Blood Pressure Blood Pressure [Right Arm] O2 Sat by Pulse Oximetry 99 Oxygen Delivery Method Oxygen Flow Rate 04/08/25 19:00 04/08/25 19:01 04/08/25 19:01 Temperature Pulse Rate 78 75 Pulse Rate [Left] Pulse Rate [Right] Respiratory Rate 29 H 16 Blood Pressure 109/73 Blood Pressure [Right Arm] O2 Sat by Pulse Oximetry 98 Oxygen Delivery Method Oxygen Flow Rate 04/08/25 19:15 04/08/25 19:30 04/08/25 19:39 Temperature Pulse Rate 77 72 80 Pulse Rate [Left] Pulse Rate [Right] Respiratory Rate 20 22 Blood Pressure Blood Pressure [Right Arm] O2 Sat by Pulse Oximetry 98 100 99 Oxygen Delivery Method Oxygen Flow Rate 04/08/25 19:39 04/08/25 19:45 04/08/25 19:46 Temperature Pulse Rate 81 84 Pulse Rate [Left] Pulse Rate [Right] Respiratory Rate Blood Pressure 123/72 Blood Pressure [Right Arm] O2 Sat by Pulse Oximetry 99 95 Oxygen Delivery Method Oxygen Flow Rate 04/08/25 20:00 04/08/25 20:00 04/08/25 20:30 Temperature Pulse Rate Pulse Rate [Left] Pulse Rate [Right] Respiratory Rate Blood Pressure 117/74 117/74 124/74 Blood Pressure [Right Arm] O2 Sat by Pulse Oximetry Oxygen Delivery Method Oxygen Flow Rate 04/08/25 20:30 04/08/25 20:30 04/08/25 20:35 Temperature Pulse Rate 90 Pulse Rate [Left] Pulse Rate [Right] Respiratory Rate 9 L Blood Pressure 124/74 124/74 Blood Pressure [Right Arm] O2 Sat by Pulse Oximetry Oxygen Delivery Method Oxygen Flow Rate 04/08/25 20:45 04/08/25 21:00 04/08/25 21:00 Temperature Pulse Rate 88 84 Pulse Rate [Left] Pulse Rate [Right] Respiratory Rate 24 15 Blood Pressure 124/82 Blood Pressure [Right Arm] O2 Sat by Pulse Oximetry Oxygen Delivery Method Oxygen Flow Rate 04/08/25 21:15 04/08/25 21:30 04/08/25 21:30 Temperature Pulse Rate 84 85 Pulse Rate [Left] Pulse Rate [Right] Respiratory Rate 36 H 16 Blood Pressure 121/71 Blood Pressure [Right Arm] O2 Sat by Pulse Oximetry Oxygen Delivery Method Oxygen Flow Rate 04/08/25 21:45 04/08/25 22:00 04/08/25 22:00 Temperature Pulse Rate 87 93 H Pulse Rate [Left] Pulse Rate [Right] Respiratory Rate 22 19 Blood Pressure 120/64 Blood Pressure [Right Arm] O2 Sat by Pulse Oximetry Oxygen Delivery Method Oxygen Flow Rate 04/08/25 22:15 04/08/25 22:24 04/08/25 22:24 Temperature Pulse Rate 95 H Pulse Rate [Left] Pulse Rate [Right] Respiratory Rate 13 Blood Pressure Blood Pressure [Right Arm] O2 Sat by Pulse Oximetry Oxygen Delivery Method Room Air Room Air Oxygen Flow Rate 04/08/25 22:30 04/08/25 23:00 04/08/25 23:29 Temperature 98.0 F Pulse Rate 87 Pulse Rate [Left] Pulse Rate [Right] 78 Respiratory Rate 23 17 22 Blood Pressure Blood Pressure [Right Arm] 113/71 O2 Sat by Pulse Oximetry 98 Oxygen Delivery Method Room Air Oxygen Flow Rate 04/08/25 23:45 04/08/25 23:56 04/08/25 23:59 Temperature 98.0 F 98.0 F Pulse Rate Pulse Rate [Left] Pulse Rate [Right] 78 78 Respiratory Rate 17 17 20 Blood Pressure Blood Pressure [Right Arm] 113/71 113/71 O2 Sat by Pulse Oximetry 98 98 Oxygen Delivery Method Room Air Room Air Oxygen Flow Rate 04/09/25 03:55 04/09/25 07:00 04/09/25 07:40 Temperature 97.7 F 97.5 F L Pulse Rate Pulse Rate [Left] Pulse Rate [Right] 66 90 Respiratory Rate 17 18 Blood Pressure Blood Pressure [Right Arm] 102/62 104/68 O2 Sat by Pulse Oximetry 98 99 Oxygen Delivery Method Room Air Room Air Room Air Oxygen Flow Rate 04/09/25 07:43 04/09/25 08:36 04/09/25 10:08 Temperature 97.5 F L Pulse Rate Pulse Rate [Left] Pulse Rate [Right] 90 Respiratory Rate 18 18 18 Blood Pressure Blood Pressure [Right Arm] 104/68 O2 Sat by Pulse Oximetry 99 Oxygen Delivery Method Room Air Oxygen Flow Rate 04/09/25 11:43 04/09/25 16:00 04/09/25 19:00 Temperature 98.1 F 98.0 F Pulse Rate Pulse Rate [Left] Pulse Rate [Right] 91 H 72 Respiratory Rate 20 21 Blood Pressure Blood Pressure [Right Arm] 108/68 112/68 O2 Sat by Pulse Oximetry 98 100 Oxygen Delivery Method Room Air Room Air Room Air Oxygen Flow Rate 04/09/25 20:00 04/10/25 00:00 04/10/25 03:52 Temperature 97.8 F 98.4 F 98.4 F Pulse Rate Pulse Rate [Left] Pulse Rate [Right] 75 68 74 Respiratory Rate 20 19 19 Blood Pressure Blood Pressure [Right Arm] 110/63 99/58 100/61 O2 Sat by Pulse Oximetry 99 99 96 Oxygen Delivery Method Room Air Room Air Room Air Oxygen Flow Rate 04/10/25 07:00 04/10/25 07:30 04/10/25 08:00 Temperature 98.5 F Pulse Rate Pulse Rate [Left] Pulse Rate [Right] 77 Respiratory Rate 19 19 Blood Pressure Blood Pressure [Right Arm] 104/51 O2 Sat by Pulse Oximetry 100 Oxygen Delivery Method Room Air Room Air Oxygen Flow Rate 04/10/25 08:00 04/10/25 12:00 04/10/25 15:21 Temperature 97.6 F Pulse Rate Pulse Rate [Left] Pulse Rate [Right] 106 H Respiratory Rate 19 18 16 Blood Pressure Blood Pressure [Right Arm] 94/53 O2 Sat by Pulse Oximetry 98 Oxygen Delivery Method Room Air Oxygen Flow Rate 04/10/25 15:30 04/10/25 16:35 04/10/25 17:03 Temperature 97.2 F L 98.8 F Pulse Rate 94 H 73 Pulse Rate [Left] Pulse Rate [Right] Respiratory Rate 18 16 16 Blood Pressure 110/75 103/64 Blood Pressure [Right Arm] O2 Sat by Pulse Oximetry 98 98 Oxygen Delivery Method Room Air Aerosol Face Tent Oxygen Flow Rate 04/10/25 17:08 04/10/25 17:13 04/10/25 17:18 Temperature Pulse Rate 66 68 66 Pulse Rate [Left] Pulse Rate [Right] Respiratory Rate 16 18 18 Blood Pressure 104/65 104/64 99/66 Blood Pressure [Right Arm] O2 Sat by Pulse Oximetry 100 100 98 Oxygen Delivery Method Aerosol Face Tent Aerosol Face Tent Nasal Cannula Oxygen Flow Rate 04/10/25 17:23 04/10/25 17:28 04/10/25 17:33 Temperature Pulse Rate 62 65 79 Pulse Rate [Left] Pulse Rate [Right] Respiratory Rate 18 18 18 Blood Pressure 102/63 96/58 99/59 Blood Pressure [Right Arm] O2 Sat by Pulse Oximetry 99 99 96 Oxygen Delivery Method Nasal Cannula Nasal Cannula Room Air Oxygen Flow Rate 04/10/25 17:40 04/10/25 17:55 04/10/25 18:10 Temperature 97.4 F L 97.2 F L 97.2 F L Pulse Rate Pulse Rate [Left] Pulse Rate [Right] 73 64 59 L Respiratory Rate 19 19 19 Blood Pressure Blood Pressure [Right Arm] 98/56 86/54 97/58 O2 Sat by Pulse Oximetry 94 L 97 97 Oxygen Delivery Method Oxygen Flow Rate 04/10/25 18:25 04/10/25 18:40 04/10/25 19:00 Temperature 97.4 F L 98.3 F Pulse Rate Pulse Rate [Left] Pulse Rate [Right] 63 65 Respiratory Rate 19 19 Blood Pressure Blood Pressure [Right Arm] 97/58 99/63 O2 Sat by Pulse Oximetry 98 98 Oxygen Delivery Method Room Air Oxygen Flow Rate 04/10/25 19:40 04/10/25 20:00 04/10/25 20:40 Temperature 98.1 F 98.1 F 97.9 F Pulse Rate Pulse Rate [Left] 63 76 Pulse Rate [Right] 63 Respiratory Rate 16 16 18 Blood Pressure Blood Pressure [Right Arm] 91/51 91/51 109/65 O2 Sat by Pulse Oximetry 100 100 97 Oxygen Delivery Method Nasal Cannula Oxygen Flow Rate 2 04/10/25 20:41 04/10/25 21:11 04/10/25 21:40 Temperature 97.7 F Pulse Rate Pulse Rate [Left] 76 Pulse Rate [Right] Respiratory Rate 19 18 16 Blood Pressure Blood Pressure [Right Arm] 108/62 O2 Sat by Pulse Oximetry 97 Oxygen Delivery Method Oxygen Flow Rate 04/10/25 22:40 04/11/25 00:00 04/11/25 00:50 Temperature 98 F 98.4 F Pulse Rate Pulse Rate [Left] 87 Pulse Rate [Right] 84 Respiratory Rate 20 16 20 Blood Pressure Blood Pressure [Right Arm] 110/68 110/63 O2 Sat by Pulse Oximetry 96 96 Oxygen Delivery Method Room Air Oxygen Flow Rate 04/11/25 01:20 04/11/25 03:44 04/11/25 05:00 Temperature 98.5 F Pulse Rate Pulse Rate [Left] Pulse Rate [Right] 82 Respiratory Rate 16 18 16 Blood Pressure Blood Pressure [Right Arm] 99/59 O2 Sat by Pulse Oximetry 96 Oxygen Delivery Method Room Air Oxygen Flow Rate 04/11/25 05:30 Temperature Pulse Rate Pulse Rate [Left] Pulse Rate [Right] Respiratory Rate 16 Blood Pressure Blood Pressure [Right Arm] O2 Sat by Pulse Oximetry Oxygen Delivery Method Oxygen Flow Rate Labs: Laboratory Last Values WBC 12.1 X10^3/uL (3.6-10.0) H D 04/09/25 05:14 RBC 4.33 X10^6/uL (3.5-5.4) 04/09/25 05:14 Hgb 12.8 g/dL (12.0-16.0) 04/09/25 05:14 Hct 37.5 % (36.0-47.0) 04/09/25 05:14 MCV 86.6 fL (80.0-100.0) 04/09/25 05:14 MCH 29.6 pg (27.0-34.0) 04/09/25 05:14 MCHC 34.2 g/dL (33.0-35.0) 04/09/25 05:14 RDW 12.9 % (11.6-16.5) 04/09/25 05:14 Plt Count 286 X10^3/uL (150.0-450.0) 04/09/25 05:14 Plt Count Comment Adequate (ADEQUATE) 04/08/25 18:30 MPV 9.3 fL (7.4-11.0) 04/09/25 05:14 Neut % (Auto) 73.6 % (42.0-75.0) 04/09/25 05:14 Lymph % (Auto) 17.6 % (21.0-51.0) L 04/09/25 05:14 Leslie % (Auto) 7.7 % (0.0-13.0) 04/09/25 05:14 Eos % (Auto) 0.6 % (0.9-2.9) L 04/09/25 05:14 Baso % (Auto) 0.5 % (0.2-1.0) 04/09/25 05:14 Neut # (Auto) 8.9 x10^3/uL (2.2-4.8) H 04/09/25 05:14 Lymph # (Auto) 2.1 X10^3/uL (1.3-2.9) 04/09/25 05:14 Leslie # (Auto) 0.9 x10^3/uL (0.3-0.8) H 04/09/25 05:14 Eos # (Auto) 0.1 x10^3/uL (0.0-0.2) 04/09/25 05:14 Baso # (Auto) 0.1 X10^3/uL (0.0-0.1) 04/09/25 05:14 Absolute Nucleated RBC 0.0 /100WBC 04/09/25 05:14 Total Counted 100 04/08/25 18:30 Neutrophils % (Manual) 90 % (39-76) H 04/08/25 18:30 Lymphocytes % (Manual) 9 % (13-43) L 04/08/25 18:30 Monocytes % (Manual) 1 % (4-9) L 04/08/25 18:30 Plt Morphology Comment Normal (NORMAL) 04/08/25 18:30 RBC Morphology Normal (NORMAL) 04/08/25 18:30 D-Dimer 0.30 ug/ml (0.0-0.57) 04/08/25 18:30 Sodium 138 mmol/L (136-145) 04/11/25 04:32 Corrected Sodium 140 mmol/L (136-145) 04/11/25 04:32 Potassium 4.1 mmol/L (3.5-5.1) 04/11/25 04:32 Chloride 106 mmol/L (98-107) 04/11/25 04:32 Carbon Dioxide 26.2 mmol/L (21-32) 04/11/25 04:32 BUN 8 mg/dL (7-18) 04/11/25 04:32 Creatinine 0.74 mg/dL (0.55-1.02) 04/11/25 04:32 Est GFR (MDRD) Af Amer > 60 (>60) 04/11/25 04:32 Est GFR (MDRD) Non-Af > 60 (>60) 04/11/25 04:32 Glucose 176 mg/dL (65-99) H 04/11/25 04:32 Calcium 8.5 mg/dL (8.5-10.1) 04/11/25 04:32 Corrected Calcium 9.1 mg/dL (8.5-10.1) 04/11/25 04:32 Magnesium 2.1 mg/dL (2.0-2.9) 04/11/25 04:32 Total Bilirubin 1.40 mg/dL (0.2-1.0) H 04/11/25 04:32 AST 236 Units/L (15-37) H 04/11/25 04:32 ALT 208 Units/L (12-78) H 04/11/25 04:32 Alkaline Phosphatase 146 Units/L (46-116) H 04/11/25 04:32 Creatine Kinase 105 Units/L (26-192) 04/08/25 18:30 Troponin I High Sens < 4.0 ng/L (4.0-60.0) L 04/08/25 18:30 B-Natriuretic Peptide 18.1 pg/mL (0-79) 04/08/25 18:30 Total Protein 6.8 g/dL (6.4-8.2) 04/11/25 04:32 Albumin 3.2 g/dL (3.4-5.0) L 04/11/25 04:32 Globulin 3.6 g/dL (2.5-4.5) 04/11/25 04:32 Albumin/Globulin Ratio 0.9 Ratio (1.1-2.1) L 04/11/25 04:32 Amylase 37 Units/L (25-115) 04/09/25 05:14 Lipase 17 Units/L (16-77) 04/09/25 05:14 HCG, Qual Negative <10 mIU/mL 04/10/25 05:09 Specimen Type Clean catch urine 04/08/25 20:08 Urine Color Dark yellow (YELLOW) 04/08/25 20:08 Urine Appearance Cloudy (CLEAR) 04/08/25 20:08 Urine pH 8.0 (5.0 - 8.0) 04/08/25 20:08 Ur Specific Mozelle 1.020 (1.000-1.030) 04/08/25 20:08 Urine Protein Negative (NEGATIVE) 04/08/25 20:08 Urine Glucose (UA) Negative (NEGATIVE) 04/08/25 20:08 Urine Ketones 4+ (NEGATIVE) 04/08/25 20:08 Urine Blood Negative (NEGATIVE) 04/08/25 20:08 Urine Nitrite Negative (NEGATIVE) 04/08/25 20:08 Urine Bilirubin Negative (NEGATIVE) 04/08/25 20:08 Urine Urobilinogen 2+ (NORMAL) 04/08/25 20:08 Ur Leukocyte Esterase 1+ (NEGATIVE) 04/08/25 20:08 Urine RBC None seen /HPF (0-3) 04/08/25 20:08 Urine WBC 0-2 /HPF (0-5) 04/08/25 20:08 Ur Squamous Epith Cells Few /HPF (NEGATIVE) 04/08/25 20:08 Amorphous Sediment 4+ /HPF (NEGATIVE) 04/08/25 20:08 Urine Bacteria Trace /HPF (NEGATIVE) 04/08/25 20:08 Ur Culture Indicated? No/not indicated 04/08/25 20:08 Reason For Visit: ACUTE CHOLECTSTITIS/CHOLELITHIASIS/ ABDOMINAL PAIN Discharge Date Discharge Date: 04/11/25 Discharge Diagnosis All Active Problems (Updated 04/08/25 @ 22:16 by JESSE GUERRERO) Leukocytosis (Acute) Abdominal pain (Acute) Cholelithiasis (Acute) Acute cholecystitis (Acute) Coccyalgia (Acute) Plan of Treatment: Continue with present treatment and follow up plan. Pt is to keep follow up appointment as instructed and take medications as ordered. Discharge Medications Discharge Medications: No Known Allergies Allergy (Verified 04/08/25 18:06) CONTINUE taking the following medications NK 04/09/25 [History] Cipro 500 mg , 1 po BIDx 7 days Percocet 5mg, 1 po q 6 hr PRN pain Discharge Disposition Assessment: see hospital course Discharge Plan Discharge Plan Hospital Course: This is a 4-year-old female presented with abdominal pain and right upper quadrant tenderness and CT scan consistent with cholelithiasis. Patient had mild elevation of bilirubin. Patient underwent uncomplicated laparoscopic cholecystectomy with cholangiogram showing no filling defects. She is doing well. Mayo her diet. Her bilirubin remains mildly elevated 1.4 as are her AST and ALT as well. This will be followed up postprocedure. There is no evidence of a leak or obstruction of the bile duct based upon the cholangiogram. She be discharged home today on usual medications plus Cipro 5 mg twice daily x 1 week and Percocet, 5 mg tablets, 1 every 6 hours as needed for pain. Patient Disposition: 01 HOME, SELF-CARE Condition: Stable Health Concerns: Post Hospitalization: new medications and changes needed to prevent readmission or further decline. Pt educated and given instructions on all concerns. Plan of Treatment: Continue with present treatment and follow up plan. Pt is to keep follow up appointment as instructed and take medications as ordered. Assessment: see hospital course Prescription drug monitoring program results: PDMP was not reviewed Prescriptions: New ciprofloxacin HCl [Cipro] 500 mg tablet 500 mg PO BID Qty: 14 0RF oxycodone-acetaminophen [Percocet] 5-325 mg tablet 1 tab PO Q6H MDD 4 PRNQty: 20 0RF Orders to Discharge Patient Discharge Orders: Discharge (Routine); Ordered 04/11/25 Ordered By: Dusty Murrell Follow ups/Referrals Follow ups/Referrals: [facility],None [Primary Care Provider] - 3 days Instructions Stand Alone Forms: Excuse From Work or School, Find Help Web Site, Post Hospital Follow Up Care Print Language: AUSTRIAN
[2025-04-11 11:10] VITALS: BP 126/77; PULSE 63; TEMP 98.7
== END 2025-04-11 11:00 | disposition home or self-care (01) ==
LOC: MED/SURG 17:50 → ER 17:50 → MED/SURG 22:45
PROVIDERS: ADMIT Surgery; ATTEND Surgery
DX: Z90.49 Acquired absence of other specified parts of digestive tract; E83.51 Hypocalcemia; D72.829 Elevated white blood cell count, unspecified; R07.89 Other chest pain; R10.811 Right upper quadrant abdominal tenderness; E80.7 Disorder of bilirubin metabolism, unspecified; K80.00 Calculus of gallbladder with acute cholecystitis without obstruction; R10.11 Right upper quadrant pain; R74.01 Elevation of levels of liver transaminase levels